=== PATIENT | female | born 1970 | race Caucasian/White ===

== ENCOUNTER 2020-04-27 01:00 | Emergency (ER) | payer BC ==
[~2020-04-27] VITALS: Ht 154.9 cm; Wt 67.6 kg
[2020-04-27 01:00] VITALS: BP_SYST 132
--- NOTE | 2020-04-27 01:00 | NUR ---
Patient to ER bed 08 to gown for evaluation. Side rails up. Report given to ARMANDO Mason
--- NOTE | 2020-04-27 01:01 | NUR ---
Patient ambulated to bedside complaining of anxiety attack starting at 1500 yesterday after eating food. Patient reports difficulty taking a deep breath. denies any pain. No other complaints/injuries per patient or as noted. Will continue to monitor.
--- NOTE | 2020-04-27 01:09 | NUR ---
ER at bedside examining patient.
[2020-04-27] MEDS ORDERED: LORazepam 2 MG/ML VIAL IM ONE (01:30)
--- NOTE | 2020-04-27 01:34 | NUR ---
PT MEDICATED WITH ATIVAN 2MG IM, PT TOLERATED WELL
[2020-04-27 02:48] VITALS: BP_SYST 132
--- NOTE | 2020-04-27 02:50 | NUR ---
Patient given written and verbal discharge instructions and verbalizes understanding. ER MD discussed with patient the results and treatment provided. Patient in stable condition. ID arm band removed. Patient educated on pain management and to follow up with PMD. Pain Scale 0/10. Opportunity for questions provided and answered. Medication side effect fact sheet provided.
== END 2020-04-27 02:50 | disposition home or self-care (01) ==
LOC: SED 01:00
DX: F41.9 Anxiety disorder, unspecified (principal)
CPT/HCPCS: 96372; 99283; J2060

== ENCOUNTER 2020-05-30 03:19 | Emergency (ER) | payer BC ==
[~2020-05-30] VITALS: Ht 154.9 cm; Wt 66.7 kg
--- NOTE | 2020-05-30 03:25 | NUR ---
Placed in room 7 . Placed on air sampling and monitoring, blood pressure machine and pulse oximeter. To gown for exam. Side rails up. Report RECEIVED FROM ARMANDO HOWELL
[2020-05-30 03:28] VITALS: BP_SYST 118
[2020-05-30] MEDS ORDERED: ASPIRIN 81 MG TAB.CHEW PO ONE (03:45)
--- NOTE | 2020-05-30 03:45 | NUR ---
PORTABLE X-RAY AT THE BEDSIDE
--- NOTE | 2020-05-30 03:52 | NUR ---
PT CAME IN FROM HOME REPORTING SUBSTERNAL CHEST PAIN, NON-RADIATING STARTING WHILE SHE WAS TRYING TO SLEEP THIS MORNING. ALSO REPORTS FEELING HEART PALPITATIONS AND TREMORS. REPORTS TESTING POSITIVE FOR COVID-19 TWO WEEKS AGO AND HAS BEEN TAKING TAMIFLU, THERAFLU AND VICKS. PT PRESENTS ANXIOUS, AAOX4, V/S STABLE
--- NOTE | 2020-05-30 04:00 | NUR ---
# 20 gauge angiocath placed to LFA. Use of asceptic technique. Opsite placed over site. Blood return noted. Blood for lab drawn from site. Flushed with 10 cc of normal saline. No evidence of infiltration noted. Patient tolerated well.
[2020-05-30 04:06] LABS: BASOPHILS % (AUTO) 0.7 % (0.0-2.0); EOSINOPHILS # (AUTO) 0.1 K/uL (0.0-0.4); EOSINOPHILS % (AUTO) 1.5 % (0.0-4.0); HEMATOCRIT 43.6 % (36-48); HEMOGLOBIN 14.6 g/dL (12.0-16.0); LYMPHOCYTES # (AUTO) 2.5 K/uL (1.0-5.5); LYMPHOCYTES % (AUTO) 36.6 % (20.5-51.5); MEAN CORPUSCULAR HEMOGLOBIN 32 pg (27-31); MEAN CORPUSCULAR HGB CONC 34 % (32-36); MEAN CORPUSCULAR VOLUME 95 fL (79.0-98.0); MONOCYTES # (AUTO) 0.6 K/uL (0.0-1.0); MONOCYTES % (AUTO) 8.5 % (1.7-9.3); NEUTROPHILS # (AUTO) 3.7 K/uL (1.8-7.7); NEUTROPHILS % (AUTO) 52.7 % (40.0-70.0); PLATELET COUNT (AUTO) 353 K/uL (130-430); RED BLOOD CELL COUNT(AUTO) 4.58 MIL/uL (4.2-6.2); RED CELL DISTRIBUTION WIDTH 14.4 % (9.0-15.0)
[2020-05-30 04:20] LABS: CALCIUM 8.4 mg/dL (8.4-11.0); CREATININE 0.76 mg/dL (0.55-1.30); POTASSIUM 4.1 mmol/L (3.5-5.1)
[2020-05-30 04:31] LABS: ALBUMIN 3.8 g/dL (3.4-4.8); TOTAL BILIRUBIN 0.2 mg/dL (0.0-1.0)
--- NOTE | 2020-05-30 05:00 | NUR ---
Patient resting quietly. No acute distress noted. Vital signs within normal range.
--- NOTE | 2020-05-30 07:12 | NUR ---
REPORT FROM CINDY ROBERTS
--- NOTE | 2020-05-30 07:16 | NUR ---
REPORT GIVEN TO ARMANDO MORIN FOR CONTINUING CARE
--- NOTE | 2020-05-30 07:20 | NUR ---
EKG performed at by PATIENCE ROBERTS. Physician given copy of EKG for review.
[2020-05-30 08:09] VITALS: BP_SYST 125
--- NOTE | 2020-05-30 08:10 | NUR ---
Patient given written and verbal discharge instructions and verbalizes understanding. ER MD discussed with patient the results and treatment provided. Patient in stable condition. ID arm band removed. IV catheter removed intact and dressing applied, no active bleeding. Rx of NONE given. Patient educated on pain management and to follow up with PMD. Pain Scale 0/10 Opportunity for questions provided and answered. Medication side effect fact sheet provided.
== END 2020-05-30 08:09 | disposition home or self-care (01) ==
LOC: SED 03:19
DX: R07.89 Other chest pain (principal); F41.9 Anxiety disorder, unspecified
CPT/HCPCS: 36415; 71045; 80053; 82550-TC; 84484; 84702-TC; 85025; 85379; 93005; 99285